=== PATIENT | male | born 1985 | race Caucasian/White ===

== ENCOUNTER 2023-10-07 14:58 | Emergency (ER) | payer OTHER, SELFPAY ==
[2023-10-07 15:00] VITALS: BP 141/89; PULSE 84; RESP 20; TEMP 36.4; O2SAT 99; BMI 44.1
[2023-10-07 15:33] LABS: Appearance Urine Clear (Clear); Bilirubin Urine Negative (Negative); Blood Urine 3+ (Negative); Color Urine Red (Yellow); Glucose Urine Negative (Negative); Ketones Urine Negative (Negative); Leukocyte Esterase Urine Negative (Negative); Nitrite Urine Negative (Negative); Protein Urine 2+ (Negative); Specific Gravity Urine 1.015 (1.000-1.030); Urobilinogen Urine 0.2 (0.2-1.0)
[2023-10-07 15:56] LABS: Squamous Epithelial Cell Urine Few (None-Few); WBC Urine 0-2 (0-5)
--- NOTE | 2023-10-07 16:08 | ED_ITS ---
HPI - General Adult General Date Seen: 10/07/23 Chief complaint: Urogenital Problems, Male Stated complaint: blood in urine Time Seen by Provider: 10/07/23 15:22 Source: patient Mode of arrival: ambulatory Limitations: no limitations History of Present Illness HPI narrative: Patient is a 37-year-old male with history of IgA nephropathy presenting to the emergency department for hematuria. He states he was diagnosed with IgA nephropathy several years ago. Was told to come the emergency department if he has any abnormalities. Last night have some suprapubic pain that went away after he urinated. Then today this afternoon he noticed blood in his urine. Has not had 3 episodes of blood in his urine. Has never had hematuria before. Denies any current abdominal pain. Denies dysuria couple fevers COVID chills could will reduce could redo choose 3 eczema shortness of breath. No other concerns noted at this time. He does not smoke tobacco products. No other concerns noted Related Data Home Medications Medication Instructions Recorded Confirmed adalimumab 40 mg/0.8 mL 40 mg subcut Q2W 10/07/23 10/07/23 subcutaneous syringe kit (Humira) Previous Rx's Medication Instructions Recorded oxycodone 5 mg capsule 5 mg PO Q6H PRN pain #12 caps 10/07/23 tamsulosin 0.4 mg capsule 0.4 mg PO QHS #14 caps 10/07/23 Allergies Allergy/AdvReac Type Severity Reaction Status Date / Time No Known Drug Allergies Allergy Verified 10/07/23 15:06 Review of Systems Status of ROS: Reports: 10 or more systems reviewed and unremarkable except as noted in History and below PFSH PFSH Social History Smoking Status: Current every day smoker Do you use any of these nicotine containing products: E-Cigarettes and Vaping Products Second hand tobacco smoke exposure: No How often do you have a drink containing alcohol: never AUDIT-C Alcohol total score: 0 Non-prescribed substance use: denies use Exam Narrative: Exam Narrative: Const: Well-nourished, Well-developed, in no distress Eyes: PERRL, no conjunctival injection, and symmetrical lids HENT: Atraumatic external nose and ears. Moist mucous membranes. Neck: Symmetric, trachea midline, No thyromegaly. CVS: RRR, No murmurs or gallops. Peripheral pulses 2+ and equal in all extremities RESP: Unlabored respiratory effort. Clear to auscultation bilaterally. GI: Nontender/Nondistended, No rebound or guarding. MSK:Extremities w/o deformity, Normal Active ROM Skin: Warm, Dry. No rashes or lesions. Neuro: Normal Muscle tone, No focal neurological deficits. Psych: Awake, Alert, & Oriented x3. Appropriate mood and affect. Const: Vital Signs, click to edit/add: Vital Signs - 24 hr 10/07/23 15:00 Temperature 97.5 F L Pulse Rate [Pulse Oximeter] 84 Respiratory Rate 20 Blood Pressure [Ri ght Upper Arm] 141/89 H Pulse Oximetry 99 Oxygen Delivery Me thod Room Air Course Vital Signs Vital signs: Initial Vital Signs Temperature 97.5 F L 10/07/23 15:00 Temperature Source Temporal Artery Scan 10/07/23 15:00 Pulse Rate 84 10/07/23 15:00 Respiratory Rate 20 10/07/23 15:00 Blood Pressure 141/89 H 10/07/23 15:00 Blood Pressure Mean 106 H 10/07/23 15:00 Blood Pressure Position Sitting 10/07/23 15:00 Pulse Oximetry 99 10/07/23 15:00 Oxygen Delivery Method Room Air 10/07/23 15:00 Vital Signs Temperature 97.5 F L 10/07/23 15:00 Pulse Rate 84 10/07/23 15:00 Respiratory Rate 20 10/07/23 15:00 Blood Pressure 141/89 H 10/07/23 15:00 Pulse Oximetry 99 10/07/23 15:00 Oxygen Delivery Method Room Air 10/07/23 15:00 Temperature 97.5 F L 10/07/23 15:00 Pulse Rate 84 10/07/23 15:00 Respiratory Rate 20 10/07/23 15:00 Blood Pressure 141/89 H 10/07/23 15:00 Pulse Oximetry 99 10/07/23 15:00 Oxygen Delivery Method Room Air 10/07/23 15:00 Medical Decision Making [facility] Narrative Medical decision making narrative: Patient is a 37-year-old male presenting for hematuria. Does have a history of IgA nephropathy. He has never had hematuria before. Urinalysis was ordered along with CBC and CMP. Has not required any pain medication at this time. No other concerns noted. Differential at this time includes nephrolithiasis, hematuria from his IgA nephropathy, UTI. Very low risk for bladder cancer. Urinalysis shows proteinuria and hematuria. This is consistent with IgA nephropathy. No signs of a UTI. CBC and CMP showed no concerning findings. I spoke to the patient about of CT scan verses nothing. At this time we are agreeable to do a CT scan as he has not had any done recently is had only 1 or [address] scan was then ordered showing a 5 mm obstructing kidney stone in the distal left ureter with mild left-sided hydroureteronephrosis. Patient is having no other symptoms at this time. Is not in any pain currently. Despite not currently being in pain I will send him home with some pain medication as he currently does not have a primary care provider, supervisor blood donor recruiters, urologist since the hospital system he was seeing recently shut down. He is working on setting up primary care and Nephrology. Patient is otherwise safe for discharge and he is agreeable to this plan. Lab Data Labs: Lab Results 10/07/23 10/07/23 Range/Units 15:20 16:00 WBC 6.66 (4.50-11.00) K/uL RBC 4.31 (4.30-5.90) m/uL Hgb 13.1 L (13.5-17.5) gm/dL Hct 38.3 (37.0-53.0) % MCV 89 (80-100) fL MCH 30 (26-34) pg MCHC 34 (32-36) gm/dL RDW Coeff of Tam 14.2 (11.5-15.5) % Plt Count 219 (140-440) K/uL Neut % (Auto) 62.3 (42.0-72.0) % Lymph % (Auto) 25.7 (20-44) % [place] % (Auto) 9.2 (0.0-11.0) % Eos % (Auto) 2.4 (0.0-7.0) % Baso % (Auto) 0.2 (0.0-3.0) % Neut # (Auto) 4.16 (1.7-7.0) K/uL Lymph # (Auto) 1.71 (0.90-2.90) K/uL [place] # (Auto) 0.60 (0.00-0.90) K/UL Eos # (Auto) 0.16 (0.00-0.50) K/uL Baso # (Auto) 0.01 (0.00-0.30) K/uL Abs Immat Gran (auto) 0.01 (0.00-0.30) K/uL Imm/Tot Granulo (auto) 0.2 % Sodium 139 (135-149) mmol/L Potassium 3.4 L (3.6-5.1) mmol/L Chloride 104 (96-114) mmol/L Carbon Dioxide 30 (20-32) mmol/L Anion Gap 5 L (7-15) mEq/L BUN 17 (5-24) mg/dL Creatinine 1.2 (0.5-1.5) mg/dL Estimated Creat Clear 79.96 Estimated GFR 79 ml/min Glucose 91 (60-115) mg/dL Calcium 9.2 (8.4-10.6) mg/dL Total Bilirubin 1.2 (0.1-1.5) mg/dL AST 36 H (12-35) U/L ALT 56 H (4-50) U/L Alkaline Phosphatase 86 (40-150) U/L Total Protein 8.0 (6.0-8.3) g/dL Albumin 4.3 (3.3-5.0) g/dL Urine Color Red A (Yellow) Urine Appearance Clear (Clear) Urine pH 7.0 (5.0-8.5) Ur Specific [place] 1.015 (1.000-1.030) Urine Protein 2+ A (Negative) Urine Glucose (UA) Negative (Negative) Urine Ketones Negative (Negative) Urine Blood 3+ A (Negative) Urine Nitrite Negative (Negative) Urine Bilirubin Negative (Negative) Urine Urobilinogen 0.2 (0.2-1.0) Ur Leukocyte Esterase Negative (Negative) Urine RBC 5-10 A (0-2) Urine WBC 0-2 (0-5) Ur Squamous Epith Cells Few (None-Few) Urine Bacteria None (None) Imaging Data CT scan abdomen and pelvis: Radiologist's impression: 1. There is an obstructing 5 millimeter stone seen in the distal left ureter with mild left-sided hydroureteronephrosis. 2. Cystic lesion of the upper pole of the left kidney measuring approximately 4.0 centimeters in greatest dimension with slightly heterogeneous internal attenuation. This is likely a benign cyst; however, would recommend repeat a CT or MR with a renal protocol in 6 months to assess for stability/morphologic changes. Please note that all CT scans at this facility use dose modulation, iterative reconstruction, and/or weight-based dosing when appropriate to reduce radiation dose to as low as reasonably achievable. Dictated by Benigno Bradshaw MD @ 10/07/2023 6:00:02 PM Discharge Plan Discharge Clinical Impression: Left nephrolithiasis Patient Disposition: Home, Self-Care Condition: Stable Instructions: Kidney Stones (ED), How to Strain Your Urine (ED) Additional Instructions: Make sure to set up primary care when he travel back home to [place]. Strain your urine until you passed the kidney stone. If you are having difficulty passing the kidney stone or developing any signs of infection I recommend following up with a urologist or another emergency department. I will also send you home with oxycodone to take in case you do develop severe pain. He can also take ibuprofen to help with the pain. Use the tamsulosin daily until you passed the kidney stone. It helps increase ureter follow to pass the stone. Prescriptions: New oxycodone 5 mg capsule 5 mg PO Q6H PRN (Reason: pain) Qty: 12 0RF tamsulosin 0.4 mg capsule 0.4 mg PO QHS Qty: 14 0RF No Action Humira 40 mg/0.8 mL syringe kit 40 mg subcut Q2W Follow Up/Referrals: Provider,Not a Local [Primary Care Provider] - Stand Alone Forms: [employer] Info Instructions
[2023-10-07 16:19] LABS: Basophils Absolute Auto 0.01 K/uL (0.00-0.30); Basophils Percent Auto 0.2 % (0.0-3.0); Eosinophils Absolute Auto 0.16 K/uL (0.00-0.50); Eosinophils Percent Auto 2.4 % (0.0-7.0); Hematocrit 38.3 % (37.0-53.0); Hemoglobin* 13.1 gm/dL (13.5-17.5); Immature Granulocytes Abs Auto 0.01 K/uL (0.00-0.30); Immature Granulocytes Pct Auto 0.2 %; Lymphocytes Absolute Auto 1.71 K/uL (0.90-2.90); Lymphocytes Percent Auto 25.7 % (20-44); Mean Corpuscular HGB Conc 34 gm/dL (32-36); Mean Corpuscular Hemoglobin 30 pg (26-34); Mean Corpuscular Volume 89 fL (80-100); Monocytes Percent Auto 9.2 % (0.0-11.0); Neutrophils Absolute Auto 4.16 K/uL (1.7-7.0); Neutrophils Percent Auto 62.3 % (42.0-72.0); Platelet Count* 219 K/uL (140-440); RDW Coefficient of Variation % 14.2 % (11.5-15.5); Red Blood Count 4.31 m/uL (4.30-5.90); White Blood Count* 6.66 K/uL (4.50-11.00)
[2023-10-07 16:20] LABS: Slide Review Reflex No
[2023-10-07 16:22] LABS: Chloride* 104 mmol/L (96-114)
[2023-10-07 16:23] LABS: Albumin* 4.3 g/dL (3.3-5.0); Potassium* 3.4 mmol/L (3.6-5.1); Sodium* 139 mmol/L (135-149)
[2023-10-07 16:25] LABS: Anion Gap 5 mEq/L (7-15); Carbon Dioxide* 30 mmol/L (20-32); Creatinine* 1.2 mg/dL (0.5-1.5); Est. Creatinine Clearance* 79.96; Estimated Glomerular Filt Rate 79 ml/min
[2023-10-07 16:26] LABS: Alanine Aminotransferase* 56 U/L (4-50); Alkaline Phosphatase* 86 U/L (40-150); Aspartate Amino Transferase* 36 U/L (12-35); Bilirubin Total* 1.2 mg/dL (0.1-1.5); Blood Urea Nitrogen* 17 mg/dL (5-24); Calcium* 9.2 mg/dL (8.4-10.6); Glucose* 91 mg/dL (60-115)
--- NOTE | 2023-10-07 16:32 | CT_ITS ---
Patient: SOPHIA CARBALLO Facility:?[facility] Patient ID:?[id number] Site Patient ID:?[id number]. Site :?[id number] Study:?CT-Abdomen/Pelvis w/ 143cc [id number] 5:26:12 PM Ordering Physician:Kalee Boyd Final Report: Indication: hematuria, suprapubic pain Technique: CT abdomen/pelvis with IV contrast, 143 mL Isovue 370 Comparison: Abdominal ultrasound on June 06, 2020 Findings: Lower thorax: The heart is normal in size without pericardial effusion. There are calcified granulomas in the right lung. Focus of scarring/atelectasis in the lingula. No suspicious pulmonary nodules or masses. Abdomen/pelvis: No suspicious focal hepatic lesions. 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 Mild diffuse hepatic steatosis. Status post cholecystectomy. No biliary ductal dilatation. The spleen is mildly enlarged without focal hepatic lesions. There is a splenule seen inferior to the spleen. The pancreas is unremarkable. No adrenal nodules. The kidneys perfused in a normal fashion. There is a cystic lesion of the upper pole of the left kidney measuring approximately 4.0 centimeters in greatest dimension with slightly heterogeneous attenuation. There are additional simple appearing cysts seen in the bilateral kidneys. There is an obstructing 5 millimeter stone seen in the distal left ureter with mild left-sided hydroureteronephrosis. Minimal left perinephric stranding. Mild circumferential bladder wall thickening, likely secondary to degree of distention. The seminal vesicles are unremarkable. Dystrophic calcifications in the prostate which is normal in size. There is no evidence of bowel obstruction or inflammation. The appendix is not discretely visualized, likely surgically removed. There are few scattered colonic diverticula without CT evidence of acute diverticulitis. No free fluid or free air. No pathologically enlarged lymph nodes throughout the abdomen or pelvis. The vasculature is unremarkable. Tiny fat containing umbilical hernia. No acute fracture or malalignment. Degenerative disc disease at L5-S1. Impression: 1. There is an obstructing 5 millimeter stone seen in the distal left ureter with mild left-sided hydroureteronephrosis. 2. Cystic lesion of the upper pole of the left kidney measuring approximately 4.0 centimeters in greatest dimension with slightly heterogeneous internal attenuation. This is likely a benign cyst; however, would recommend repeat a CT or MR with a renal protocol in 6 months to assess for stability/morphologic changes. Please note that all CT scans at this facility use dose modulation, iterative reconstruction, and/or weight-based dosing when appropriate to reduce radiation dose to as low as reasonably achievable. Dictated by Benigno Bradshaw MD @ 10/07/2023 6:00:02 PM Signed by:?Benigno Bradshaw MD @10/07/2023 6:00:02 PM (Electronic Signature)
[2023-10-07 18:42] VITALS: BP 141/89; PULSE 84; RESP 20; TEMP 36.4
== END 2023-10-07 18:55 | disposition home or self-care (01) ==
PROVIDERS: Emergency Provider Student in an Organized Health Care Education/Training Program
DX: N20.0 Calculus of kidney (principal)
CPT/HCPCS: 36415; 74177; 80053; 81001; 85025; 99283; 99284; 99285; Q9967

== ENCOUNTER 2024-11-12 17:21 | Emergency (ER) | payer OTHER, SELFPAY ==
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
--- OUTSIDE RECORDS SUMMARY | 2024-11-12 17:23 | XMS_ITS | Encounter Summary ---
Author Organization [facility] Address [facility] [place] [address] Care Team Providers Care Can Tester Name Role Phone Maryjane Garrett APRN Primary Care Provider + Maryjane Garrett APRN Primary Care Provider + None, Provider Primary Care Provider Alexa Hernandez DO Primary Care Provider Santa Robbins Primary Care Provider [phone] Reason for Referral * Consultation (Routine) - Closed Specialty Diagnoses / Procedures Referred By Beni boudreaux Referred To Contact DERMATOLOGY Diagnoses Psoriasis Maryjane Garrett APRN Phone: tel: fax: Referral ID Status Reason Start Date Expiration Date V isits Requested Visits Authorized [id number] Closed Specialty Services 09/21/2017 10/22/2018 1 1 Encounter Details Date Type Department Care Team (Late st Contact Info) Description 09/20/2017 NeGoBuY Message Enc [facility] [address] [place] [id number] Maryjane Garrett APRN [address] [place] [phone] Referral Social History Tobacco Use Types Packs/Day Years Used Date Smoking Tobacco: Light Smoker Cigarettes Electronic Cigarettes Smokeless Tobacco: Never Alcohol Use Standard Drinks/Week Comments No 0 (1 standard drink = 0.6 oz pur e alcohol) Sex and Gender Information Value Date Recorded Sex Assigned at Not on file Legal Sex Male 9:42 PM BELL STAFF Gender Identity Male 09/19/2022 8:08 AM CDT Sexual Orientation Straight 09/19/2022 8: 08 AM CDT documented as of this encounter Plan of Treatment Scheduled Referrals Name Type Priority Associated Diagnoses Orde r Schedule Ambulatory referral to Dermatology Referral Routine Psoriasis Ordered: 09/21/2017 documented as of this encounter Visit Diagnoses Diagnosis Psoriasis- Primary Other psoriasis documented in this encounter Additional Health Concerns Infection Onset Date Last Indicated Resolved Time COVID-19 Rule Out 07/15/2023 07/15/2023 07/15/2023 7:56 PM BELL STAFF Influenza - Seasonal 07/15/2023 07/15/2023 024 12:32 AM BELL STAFF documented as of this encounter Care Teams Can Tester Relationship Specialty Start Date End Date Maryjane Garrett APRN PCP - General NURSE PRACTITIONER 09/20/17 01/29/18 Maryjane Garrett APRN PCP - General NURSE PRACTITIONER 11/09/18 02/13/19 None, MD Sven PCP - General 02/14/19 07/15/23 [place] [address] [place] [address] PCP - General FAMILY PRACTICE 07/16/23 08/09/23 [place] [address] [place], [place] [address] PCP - General PHYSICIAN ASE MASTER MECHANIC 08/10/23 documented as of this encounter
--- OUTSIDE RECORDS SUMMARY | 2024-11-12 17:23 | XMS_ITS | Encounter Summary ---
Author Organization [facility] Address [address] [place] [address] Care Team Providers Care Early Interventionist Name Role Phone Maryjane Garrett APRN Primary Care Provider + None, Provider Primary Care Provider Alexa Hernandez DO Primary Care Provider Santa Robbins Primary Care Provider [phone] Encounter Details Date Type Department Care Team (Late st Contact Info) Description 11/09/2018 MyCPetcube Message Enc [employer] DEPARTMENT [address] [place] [address] [facility] Provider Visit Follow Up Social History Tobacco Use Types Packs/Day Years Used Date Smoking Tobacco: Light Smoker Cigarettes Electronic Cigarettes Smokeless Tobacco: Never Alcohol Use Standard Drinks/Week Comments No 0 (1 standard drink = 0.6 oz pur e alcohol) Sex and Gender Information Value Date Recorded Sex Assigned at Not on file Legal Sex Male 9:42 PM CLERICAL CLERK Gender Identity Male 09/19/2022 8:08 AM CDT Sexual Orientation Straight 09/19/2022 8: 08 AM CDT documented as of this encounter Plan of Treatment Not on file documented as of this encounter Visit Diagnoses Not on filedocumented in this encounter Additional Health Concerns Infection Onset Date Last Indicated Resolved Time COVID-19 Rule Out 07/15/2023 07/15/2023 07/15/2023 7:56 PM CLERICAL CLERK Influenza - Seasonal 07/15/2023 07/15/2023 024 12:32 AM CLERICAL CLERK documented as of this encounter Care Teams Early Interventionist Relationship Specialty Start Date End Date Maryjane Garrett APRN PCP - General NURSE PRACTITIONER 11/09/18 02/13/19 None, Provider, PCP - General 02/14/19 07/15/23 [place] [address] [place], [place] [address] PCP - General FAMILY PRACTICE 07/16/23 08/09/23 [place] [address] [place] [address] PCP - General PHYSICIAN CONSTRUCTION CONTROLLER 08/10/23 documented as of this encounter
--- OUTSIDE RECORDS SUMMARY | 2024-11-12 17:23 | XMS_ITS | Encounter Summary ---
Author Organization [facility] Address [address] [place] [address] Care Team Providers Care Early Childhood Educator Aide Name Role Phone Candace Anthony MD Primary Care Provider [phone] Encounter Details Date Type Department Care Team (Late st Contact Info) Description 09/18/[address] [address] [place] [address] [place] [address] Social History Tobacco Use Types Packs/Day Years Used Date Smoking Tobacco: Never Smokeless Tobacco: Never Comments:vapes Alcohol Use Standard Drinks/Week Comments Yes 0 (1 standard drink = 0.6 oz pur e alcohol) 4 beers per month [facility] Utilities Answer Date Recorded In the past 12 months has [employer], gas, oil, or water [employer] threatened to shut off services in your home? Yes 09/16/2024 Social Connection and Isolation Panel [NHANES] A nswer Date Recorded In a typical week, how many times do you talk on the phone with family, friends, or neighbors? Once a week 09/16/2024 How often do you get together with friends or re latives? Never 09/16/2024 How often do you attend restorationist or anabaptist serv ices? Never 09/16/2024 Do you belong to any clubs o r organizations such as restorationist groups, unions, fraternal or athletic groups, or school groups? No 09/16/2024 How often do you attend meet ings of the clubs or organizations you belong to? Never 09/16/2024 Are you , , di vorced, , never , or living with a partner? 09/16/2024 AUDIT-C Answer Date Recorded Q1: How often do you have a drink containing alc ohol? Monthly or less 09/16/2024 Q2: How many drinks containi ng alcohol do you have on a typical day when you are drinking? 3 or 4 09/16/2024 Q3: How often do you have si x or more drinks on one occasion? Less than monthly 09/16/2024 Overall Financial Resource Strain (CARDIA) Answe r Date Recorded How hard is it for you to pa y for the very basics like food, housing, medical care, and heating? Hard 09/16/2024 [facility] - Occupational Stress Questionnaire Answer Date Recorded Do you feel stress - tense, restless, nervous, or anxious, or unable to sleep at night because your mind is troubled all the time - these days? Only a little 09/16/2024 Exercise Vital Sign Answer Date Recorde d On average, how many days pe r week do you engage in moderate to strenuous exercise (like a brisk walk)? 2 days 09/16/2024 On average, how many minutes do you engage in exercise at this level? 30 min 09/16/2024 Hunger Vital Sign Answer Date Recorded Within the past 12 months, y ou worried that your food would run out before you got the money to buy more. Sometimes true Within the past 12 months, t he food you bought just didn't last and you didn't have money to get more. Never true 04/2025 PRAPARE - Transportation Answer Date Re corded In the past 12 months, has l ack of transportation kept you from medical appointments or from getting medications? No 09/07 In the past 12 months, has l ack of transportation kept you from meetings, work, or from getting things needed for daily living? No 09/16/2024 Housing Stability Vital Sign Answer Griffin e Recorded Unable to Pay for Housing in the Last Year Not o n file 07/14/2022 Number of Places Lived in the Last Year Not on f ile 07/14/2022 In the last 12 months, was t here a time when you did not have a steady place to sleep or slept in a chcf (including now)? No 07/14/2022 Housing Stability Vital Sign Answer Griffin e Recorded In the last 12 months, was t here a time when you were not able to pay the mortgage or rent on time? Yes 09/16/2024 In the past 12 months, how m any times have you moved where you were living? 0 09/16/2024 At any time in the past 12 m [place], were you homeless or living in a chcf (including now)? No 09/16/2024 Depression (GHS) Answer Date Recorded PHQ2 Not on file 09/16/2024 PHQ4 Not on file 09/16/2024 PHQ-9 TOTAL SCORE 10 09/16/2024 Suicide Risk Alert Not on file 09/16/2024 Sex and Gender Information Value Date Recorded Sex Assigned at Male 11/25/2020 8:12 PM CDT Legal Sex Male 1:31 PM MEDICAL OFFICE ASSISTANT Gender Identity Male 11/25/2020 8:12 PM CDT Sexual Orientation Straight 11/25/2020 8: 12 PM CDT documented as of this encounter Miscellaneous Notes * Telephone Encounter - Bren See - 10/28/2024 2:21 PM CDT Contacted Patient to follow-up regarding initial phone call to discuss social needs. Patient was unable to get connected to resources. Patient has been busy getting prepared for a new job so has not had time to look into all the resources. Patient would like another follow up in about a month. 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 Patient is going back for training with the [facility] [employer], but while that is happeningthey do not have much money. His is currently receiving $1400/month from disability and rent is $700/month. They receive food stamps, which pays for most but not all of their food. Their currentconcerns are paying for their water bill, food, and fuel assistance. Patient is open to other resources relating to utilities so that money can be used toward other needs. The following resources were sent via email: [facility] Emergency Assistance Services - [facility] [employer] Patient accepted a follow-up call in a few weeks. Priorities: Financial - Gave verbal consent to share resources Crisis indicated: Chiqui Urias * Telephone Encounter - Ruth Diaz - 09/18/2024 2:29 PM CDT Patient called back regarding initial phone call. Patient was out running errands and asked if we could call him back a later time today. * Telephone Encounter - Ruth Diaz - 09/18/2024 2:21 PM CDT This was the first attempt to call patient regarding their needs expressed on the Social Needs Assessment. Patient did not answer the phone, but was left a message to give us a call back. documented in this encounter Plan of Treatment Upcoming Encounters Date Type Department Care Team (Late st Contact Info) Description 12/03/2024 3:00 PM CDT Telephone Pharmacy Care [facility] - [facility] [address] [place] [id number] 03/25/2025 3:15 PM CDT Office Visit [place] - Dermatology [address] [place] [address] Roger Gupta MD [address] [place] [address] documented as of this encounter Visit Diagnoses Not on filedocumented in this encounter Care Teams Early Childhood Educator Aide Relationship Specialty [place] [address] [place], [place] [address] PCP - General FAMILY MEDICINE 08/30/24 documented as of this encounter
--- OUTSIDE RECORDS SUMMARY | 2024-11-12 17:23 | XMS_ITS | Encounter Summary ---
Author Organization [facility] Address [address] [place] [address] Care Team Providers Care Automatic Dry Starch Operator Name Role Phone Maryjane Garrett APRN Primary Care Provider + None, Provider Primary Care Provider Alexa Hernandez DO Primary Care Provider Santa Robbins Primary Care Provider [phone] Reason for Visit * Reason Comments Discharge Summary (SCAN) [facility] Encounter Details Date Type Department Care Team (Late st Contact Info) Description 11/08/2018 [facility] [address] [place] [phone] Scanned, Documents Discharge Summary (SCAN) ([facility]) Social History Tobacco Use Types Packs/Day Years Used Date Smoking Tobacco: Former Cigarettes Passive Smoke Exposure: Current Smokeless Tobacco: Never Comments:Vaping, 1 pod lasts 3 weeks- quit cigarettes x 9 years Passive Exposure Comments:vape Alcohol Use Standard Drinks/Week Comments Yes 3.3 (1 standard drink = 0.6 oz p ure alcohol) Drinks on holidays only Sex and Gender Information Value Date Recorded Sex Assigned at Not on file Legal Sex Male 9:42 PM GRADE RECORDER Gender Identity Male 09/19/2022 8:08 AM CDT Sexual Orientation Straight 09/19/2022 8: 08 AM CDT 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 Not on file Not on file documented as of this encounter Plan of Treatment Not on file documented as of this encounter Visit Diagnoses Not on filedocumented in this encounter Additional Health Concerns Infection Onset Date Last Indicated Resolved Time COVID-19 Rule Out 07/15/2023 07/15/2023 07/15/2023 7:56 PM GRADE RECORDER Influenza - Seasonal 07/15/2023 07/15/2023 024 12:32 AM GRADE RECORDER documented as of this encounter Care Teams Automatic Dry Starch Operator Relationship Specialty Start Date End Date Maryjane Garrett, REVIEW TRAINER PCP - General NURSE PRACTITIONER 11/09/18 02/13/19 None, MD Sven PCP - General 02/14/19 07/15/23 [place] [address] [place], [place] [id number] PCP - General FAMILY PRACTICE 07/16/23 08/09/23 [place] [address] [place], [place] [address] PCP - General PHYSICIAN OPERATIONS AND MAINTENANCE TECHNICIAN 08/10/23 documented as of this encounter
--- OUTSIDE RECORDS SUMMARY | 2024-11-12 17:23 | XMS_ITS | Clinical Summary ---
Author Organization [facility] Address [address] [place] [address] Care Team Providers Care Selvage Machine Operator Name Role Phone Pcp, No Primary Care Provider Unavailabl e Social History Tobacco Use Types Packs/Day Years Used Date Smoking Tobacco: Never Assessed Sex and Gender Information Value Date Recorded Sex Assigned at Not on file Gender Identity Not on file Sexual Orientation Not on file Plan of Treatment Health Maintenance Due Date Last Done Comments HIV Screening 1983 Annual Physical 05/29/1986 Obesity Intervention 11/26/1989 Varicella Vaccines (1 of 2 - 13+ 2-dose series) 11/26/1996 Hepatitis A Vaccines (1 of 2 - Risk 2-dose series) 11/26/2002 Hepatitis B Vaccines (1 of 3 - 19+ 3-dose series) 11/26/2002 COVID-19 Vaccine ( - 2023-2 5 season) 2024 Influenza Vaccine (Season Ended) 2025 08/11/2023 Diabetes Screening 08/11/2026 08/11/2023, 07/21/2022 Lipid Panel 07/21/2027 07/21/2022 DTaP/Tdap/Td Vaccines (3 - T d or Tdap) 11/07/2028 11/07/2018, 10/17/1988 Zoster Vaccines (1 of 2) 11/26/2033 Respiratory Syncytial Virus (RSV) 60 years and older and/or patients (1 - 1-dose 75+ series) 11/26/2058 MMR Vaccines Completed 01/24/1996 Pneumococcal: Pediatrics (0 to 5 Yrs) and At-Risk Patients (6 to 49 Years) Completed 08/11/2023 HPV Vaccines Aged Out No longer eligi ble based on patient's age to complete this topic Meningococcal B Vaccine Aged Out No l onger eligible based on patient's age to complete this topic Meningococcal Vaccine Aged Out No boby clover eligible based on patient's age to complete this topic Respiratory Syncytial Virus (RSV) <20 months Aged Out No longer eligible b ased on patient's age to complete this topic Care Teams Selvage Machine Operator Relationship Specialty Start Date End Date Pcp, No PCP - General 09/13/23
--- OUTSIDE RECORDS SUMMARY | 2024-11-12 17:23 | XMS_ITS | Encounter Summary ---
Author Organization [facility] Address [address] [place] [address] Care Team Providers Care Production Zone Leader Name Role Phone Maryjane Garrett APRN Primary Care Provider + Maryjane Garrett APRN Primary Care Provider + None, Provider Primary Care Provider Alexa Hernandez DO Primary Care Provider Santa Robbins Primary Care Provider [phone] Encounter Details Date Type Department Care Team (Late st Contact Info) Description 09/20/2017 xzoops Message Enc [employer] DEPARTMENT [address] [place] [address] [facility] Provider Visit Follow Up Social History Tobacco Use Types Packs/Day Years Used Date Smoking Tobacco: Light Smoker Cigarettes Electronic Cigarettes Smokeless Tobacco: Never Alcohol Use Standard Drinks/Week Comments No 0 (1 standard drink = 0.6 oz pur e alcohol) Sex and Gender Information Value Date Recorded Sex Assigned at Not on file Legal Sex Male 9:42 PM GRIT REMOVAL OPERATOR Gender Identity Male 09/19/2022 8:08 AM CDT Sexual Orientation Straight 09/19/2022 8: 08 AM CDT documented as of this encounter Plan of Treatment Not on file documented as of this encounter Visit Diagnoses Not on filedocumented in this encounter Additional Health Concerns Infection Onset Date Last Indicated Resolved Time COVID-19 Rule Out 07/15/2023 07/15/2023 07/15/2023 7:56 PM GRIT REMOVAL OPERATOR Influenza - Seasonal 07/15/2023 07/15/2023 024 12:32 AM GRIT REMOVAL OPERATOR documented as of this encounter Care Teams Production Zone Leader Relationship Specialty Start Date End Date Maryjane Garrett, ZOHREH PCP - General NURSE PRACTITIONER 09/20/17 01/29/18 Maryjane Garrett APRN PCP - General NURSE PRACTITIONER 11/09/18 02/13/19 None, ProviderMD PCP - General 02/14/19 07/15/23 [place] [address] [place] [address] PCP - General FAMILY PRACTICE 07/16/23 08/09/23 [place] [address] [place] [address] PCP - General PHYSICIAN CAREER SERVICES OFFICER 08/10/23 documented as of this encounter
--- OUTSIDE RECORDS SUMMARY | 2024-11-12 17:23 | XMS_ITS | Encounter Summary ---
Author Organization [facility] Address [address] [place] [address] Care Team Providers Care Saturator Operator Name Role Phone Candace Anthony MD Primary Care Provider [phone] Encounter Details Date Type Department Care Team (Late st Contact Info) Description 09/05/2024 Telephone Pharmacy [facility] [place] [address] [place], [place] [id number] Eli Kennedy, MANAGER WELDING [address] [place], [place] [id number] Social History Tobacco Use Types Packs/Day Years Used Date Smoking Tobacco: Never Smokeless Tobacco: Never Comments:vapes Alcohol Use Standard Drinks/Week Comments Yes 0 (1 standard drink = 0.6 oz pur e alcohol) 4 beers per month Social Connection and Isolation Panel [NHANES] A nswer Date Recorded In a typical week, how many times do you talk on the phone with family, friends, or neighbors? Twice a week 07/14/2022 Frequency of Social Gatherings with Friends and Family Not on file 07/14/2022 Attends Oriental Orthodox Services Not on file 07/14 Active Member of Clubs or Organizations Not on f ile 07/14/2022 Attends Club or Organization Meetings Not on meredith e 07/14/2022 Marital Status Not on file 07/14/2022 AUDIT-C Answer Date Recorded Q1: How often do you have a drink containing alc ohol? Monthly or less 07/14/2022 Q2: How many drinks containi ng alcohol do you have on a typical day when you are drinking? 1 or 2 07/14/2022 Q3: How often do you have si x or more drinks on one occasion? Never 07/14/2022 Overall Financial Resource Strain (CARDIA) Answe r Date Recorded How hard is it for you to pa y for the very basics like food, housing, medical care, and heating? Somewhat hard 07/14/2022 [facility] - Occupational Stress Questionnaire Answer Date Recorded Do you feel stress - tense, restless, nervous, or anxious, or unable to sleep at night because your mind is troubled all the time - these days? To some extent 07/14/2022 Exercise Vital Sign Answer Date Recorde d On average, how many days pe r week do you engage in moderate to strenuous exercise (like a brisk walk)? 3 days 07/14/2022 On average, how many minutes do you engage in exercise at this level? 90 min 07/14/2022 Hunger Vital Sign Answer Date Recorded Within the past 12 months, y ou worried that your food would run out before you got the money to buy more. Sometimes true Within the past 12 months, t he food you bought just didn't last and you didn't have money to get more. Never true 11/2022 PRAPARE - Transportation Answer Date Re corded In the past 12 months, has l ack of transportation kept you from medical appointments or from getting medications? No 11/2022 In the past 12 months, has l ack of transportation kept you from meetings, work, or from getting things needed for daily living? No 07/14/2022 Housing Stability Vital Sign Answer Griffin e Recorded Unable to Pay for Housing in the Last Year Not o n file 07/14/2022 Number of Places Lived in the Last Year Not on f ile 07/14/2022 In the last 12 months, was t here a time when you did not have a steady place to sleep or slept in a detention (including now)? No 07/14/2022 Depression (GHS) Answer Date Recorded PHQ2 Not on file 04/05/2024 PHQ4 Not on file 04/05/2024 PHQ-9 TOTAL SCORE 6 04/05/2024 Suicide Risk Alert Not on file 04/05/2024 Sex and Gender Information Value Date Recorded Sex Assigned at Male 11/25/2020 8:12 PM CDT Legal Sex Male 1:31 PM JAVASCRIPT PROGRAMMER Gender Identity Male 11/25/2020 8:12 PM CDT Sexual Orientation Straight 11/25/2020 8: 12 PM CDT documented as of this encounter Progress Notes * Eli Kennedy TECHNICIAN - 09/05/2024 10:16 AM CST [facility] requesting clinical paperwork for submission of PA request for medication, Skyrizi for: ROHAN-NELA Forwarding to PA Specialist Yuliya Kowalski [facility] SCRIPT PROGRAMMER documented in this encounter Miscellaneous Notes * Telephone Encounter - Yuliya Rutledge - 09/20/2024 10:44 AM CDT Patient seen 09/19. Completed PA/PDL for skyrizi and faxed to [facility] [id number] for processing. * Telephone Encounter - Yuliya Rutledge - 09/05/2024 12:58 PM CST Pt ID# [id number] with ROHAN RONDON. [facility] requires documentation of response to therapy, and patient has not been seen since starting Skyrizi. Dr. Gupta - please advise. Are we able to get patient in for follow up on Skyrizi? SCRIPT PROGRAMMER documented in this encounter Plan of Treatment Upcoming Encounters Date Type Department Care Team (Late st Contact Info) Description 12/03/2024 3:00 PM CDT Telephone Pharmacy Care [facility] - [facility] [address] [place] [id number] 03/25/2025 3:15 PM CDT Office Visit [place] - Dermatology [address] [place] [address] [place] [address] Roger Gupta MD [address] [place] [address] documented as of this encounter Visit Diagnoses Not on filedocumented in this encounter Care Teams Saturator Operator Relationship Specialty [place] [address] [place] [address] PCP - General FAMILY MEDICINE 08/30/24 documented as of this encounter
--- OUTSIDE RECORDS SUMMARY | 2024-11-12 17:24 | XMS_ITS | Encounter Summary ---
Author Organization [facility] Address [address] [place] [address] Care Team Providers Care Transplant Coordinator Name Role Phone Candace Anthony MD Primary Care Provider [phone] Encounter Details Date Type Department Care Team ([facility] st Contact Info) Description 10/01/2024 3:00 PM CDT Telephone Pharmacy Care Clinic [facility] [address] [place] [address] MaryDelgado franco, [facility] [address] [place], [place] [id number] Social History Tobacco Use Types Packs/Day Years Used Date Smoking Tobacco: Never Smokeless Tobacco: Never Comments:vapes Alcohol Use Standard Drinks/Week Comments Yes 0 (1 standard drink = 0.6 oz pur e alcohol) 4 beers per month [facility] Utilities Answer Date Recorded In the past 12 months has [employer], gas, oil, or water [employer] threatened to shut off services in your home? Yes 09/16/2024 Social Connection and Isolation Panel [NHANES] A nswer Date Recorded In a typical week, how many times do you talk on the phone with family, friends, or neighbors? Once a week 09/16/2024 How often do you get together with friends or re latives? Never 09/16/2024 How often do you attend adventism or judaism serv ices? Never 09/16/2024 Do you belong to any clubs o r organizations such as adventism groups, unions, fraternal or athletic groups, or [...] housing, medical care, and heating? Hard 09/16/2024 [facility] of Occupat ional Health - Occupational Stress [...] place to sleep or slept in a fpc (including now)? No 07/14/2022 Housing Stability Vital Sign Answer Griffin e Recorded In the last 12 months, was t here a time when you were not able to pay the mortgage or rent on time? Yes 09/16/2024 In the past 12 months, how m any times have you moved where you were living? 0 09/16/2024 At any time in the past 12 m [facility], were you homeless or living in a fpc (including now)? 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 Indication: PsO Dose confirmed based on patient factors: Yes Non-specialty additional therapies: topical steroids Start Date of Specialty Medications: 03/07/24 [employer] Email: [email or web address] MyChart Refill Enrollment No Emergency Contact Confirmed: Yes Therapy Summary Previously failed Humira and Otezla Unable to tolerate methotrexate Specialty Notes: call after 3pm Specialty Pharmacy Care Plan Value Time User Problem/issue: Leo has psoriasis on 85% of his body 03/07/2024 3:51 PM Gabriel So [facility] Resources available: Start Skyrizi and enroll in [facility] specialty pharmacy program 03/07/2024 3:51 PM Gabriel So [facility] Goals incorporating patient desires/motivation: He currently has psoriasis on his chest, back, abdomen, arms and legs. It is estimated that he has 85% of his body surface area affected with psoriasis. The goal will be to reduce it to 10% or less. 03/07/2024 3:51 PM Gabriel So [facility] Care plan initiation date: 03/07/24 03/07/2024 3:51 PM Gabriel So [facility] Care plan resolution duration (days): 365 03/07/2024 3:51 PM Gabriel So [facility] Care plan resolution date: 03/07/25 03/07/2024 3:51 PM Gabriel So [facility] Assessment: Leo is on Skyrizi 150 mg subcutaneously once every 12 weeks for psoriasis. He's overdue for his injection do to requiring a updated prior authorization. Last Skyrizi dose was due on 09/25/2024. Pharmacy will ship next supply on 10/03 and he will administer upon arrival. He can then stay on original schedule with next injection due on 12/18/2024. Leo reports the Skyrizi has been highly effective overall, but he's starting to have some increasedpsoriasis activity on the left leg due to the late dose. He explains a few dime to nickel size lesions. He also volunteered that his joints are feeling a bit stiffer towards the end of intervals. Overall, very pleased with Skyrizi and rates it an 8.5 out of 10. Injections are rotated in the abdomen and no difficulty with injection process. No postinjection reactions. He does endorse some fatigue for a day or 2 after the injection. Planisher suggested he could try 600 mg of ibuprofen to see if that assists with the fatigue. Plan: Leo has no medication questions or changes and will continue on current medication regimen. Next supply of Skyrizi will be shipped from [facility] on 10/03/2024 and accommodate dose to be given upon arrival. Next QMR call scheduled for 12/03/2024 at 3 PM This visit was conducted via phone and 5 minutes were spent on patient care, education, and/or counseling). Delgado Hernandez [facility] documented in this encounter Plan of Treatment Upcoming Encounters Date Type Department Care Team (Late st Contact Info) Description 12/03/2024 3:00 PM CDT Telephone Pharmacy Care [facility] Karen Colbert [address] [facility] [place] [address] 03/25/2025 3:15 PM CDT Office Visit [place] [facility] [address] [place] [address] Roger Gupta MD [address] [place] [phone] documented as of this encounter Visit Diagnoses Diagnosis Psoriasis- Primary Other psoriasis documented in this encounter Care Teams Transplant Coordinator Relationship Specialty [place] [address] [place] [address] PCP - General FAMILY MEDICINE 08/30/24 documented as of this encounter
--- OUTSIDE RECORDS SUMMARY | 2024-11-12 17:24 | XMS_ITS | Encounter Summary ---
Author Organization [employer] [facility] Address [address] [place] [address] Care Team Providers Care Band Presser Name Role Phone Candace Anthony MD Primary Care Provider [phone] Encounter Details Date Type Department Care Team (Late st Contact Info) Description 10/14/2024 Patient Self-Triage [address] [id number] Provider, [place] [address] [address] Social History Tobacco Use Types Packs/Day Years Used Date Smoking Tobacco: Never Smokeless Tobacco: Never Comments:vapes Alcohol Use Standard Drinks/Week Comments Yes 0 (1 standard drink = 0.6 oz pur e alcohol) 4 beers per month [facility] Utilities Answer Date Recorded In the past 12 months has [employer] electric, gas, oil, or water company threatened to shut off services in your home? Yes 09/16/2024 Social Connection and Isolation Panel [NHANES] A nswer Date Recorded In a typical week, how many times do you talk on the phone with family, friends, or neighbors? Once a week 09/16/2024 How often do you get together with friends or re latives? Never 09/16/2024 How often do you attend quaker or christian serv ices? Never 09/16/2024 Do you belong to any clubs o r organizations such as quaker groups, unions, fraternal or athletic groups, or [...] housing, medical care, and heating? Hard 09/16/2024 [facility] of Occupat ional Health - Occupational Stress [...] place to sleep or slept in a mcfp (including now)? No 07/14/2022 Housing Stability Vital Sign Answer Griffin e Recorded In the last 12 months, was t here a time when you were not able to pay the mortgage or rent on time? Yes 09/16/2024 In the past 12 months, how m any times have you moved where you were living? 0 09/16/2024 At any time in the past 12 m [facility], were you homeless or living in a mcfp (including now)? 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 Gender Identity Male 11/25/2020 8:12 PM CDT Sexual Orientation Straight 11/25/2020 8: 12 PM CDT documented as of this encounter Plan of Treatment Upcoming Encounters Date Type Department Care Team (Late st Contact Info) Description 12/03/2024 3:00 PM CDT Telephone Pharmacy Care Clinic - Karen Colbert [address] [facility] [place] [address] 03/25/2025 3:15 PM CDT Office Visit [place] - Derm[facility] [address] [place] [phone] Roger Gupta MD [address] [place] [phone] documented as of this encounter Visit Diagnoses Not on filedocumented in this encounter Care Teams Band Presser Relationship Specialty [place] [address] [place] [address] PCP - General FAMILY MEDICINE 08/30/24 documented as of this encounter
--- OUTSIDE RECORDS SUMMARY | 2024-11-12 17:24 | XMS_ITS | Encounter Summary ---
Author Organization [facility] Address [address] [place] [address] Care Team Providers Care Mobile Home Installer Name Role Phone Candace Anthony MD Primary Care Provider [phone] Encounter Details Date Type Department Care Team (Late st Contact Info) Description 10/01/2024 Telephone Pharmacy Care Clinic - [place] [address] [place], [place] [phone] Harshad Barba, FOLDER SEAMER [address] [place], [place] [id number] Social History Tobacco Use Types Packs/Day Years Used Date Smoking Tobacco: Never Smokeless Tobacco: Never Comments:vapes Alcohol Use Standard Drinks/Week Comments Yes 0 (1 standard drink = 0.6 oz pur e alcohol) 4 beers per month [facility] Utilities Answer Date Recorded In the past 12 months has [employer], [employer], oil, or water [employer] threatened to shut off services in your home? Yes 09/16/2024 Social Connection and Isolation Panel [NHANES] A nswer Date Recorded In a typical week, how many times do you talk on the phone with family, friends, or neighbors? Once a week 09/16/2024 How often do you get together with friends or re latives? Never 09/16/2024 How often do you attend rastafari or pentecostal serv ices? Never 09/16/2024 Do you belong to any clubs o r organizations such as rastafari groups, unions, fraternal or athletic groups, or [...] housing, medical care, and heating? Hard 09/16/2024 [facility] of Occupat ional Health - Occupational Stress [...] place to sleep or slept in a custodial (including now)? No 07/14/2022 Housing Stability Vital Sign Answer Griffin e Recorded In the last 12 months, was t here a time when you were not able to pay the mortgage or rent on time? Yes 09/16/2024 In the past 12 months, how m any times have you moved where you were living? 0 09/16/2024 At any time in the past 12 m onths, were you homeless or living in a custodial (including now)? No 09/16/2024 Depression ([facility]) Answer Date Recorded PHQ2 Not on file 09/16/2024 PHQ4 Not on file 09/16/2024 PHQ-9 TOTAL SCORE 10 09/16/2024 Suicide Risk Alert Not on file 09/16/2024 Sex and Gender Information Value Date Recorded Sex Assigned at Male 11/25/2020 8:12 PM CDT Legal Sex Male 1:31 PM [employer] Gender Identity Male 11/25/2020 8:12 PM CDT Sexual Orientation Straight 11/25/2020 8: 12 PM CDT documented as of this encounter Progress Notes * Harshad Barba, FOLDER SEAMER - 10/01/2024 2:52 PM CDT [facility] Specialty received PA approval, expiration: 09/19/2025. Thank You! -Harshad Shaw [facility] Specialty detective precinct documented in this encounter Plan of Treatment Upcoming Encounters Date Type Department Care Team (Late st Contact Info) Description 12/03/2024 3:00 PM CDT Telephone Pharmacy Care Clinic - Karen Walters [address] [place] [address] 03/25/2025 3:15 PM CDT Office Visit [place] [facility] D[facility] [address] [place] [phone] Roger Gupta MD [address] [place] [phone] documented as of this encounter Visit Diagnoses Not on filedocumented in this encounter Care Teams Mobile Home Installer Relationship Specialty [place] [address] [place] [address] PCP - General FAMILY MEDICINE 08/30/24 documented as of this encounter
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
--- OUTSIDE RECORDS SUMMARY | 2024-11-12 17:24 | XMS_ITS | Encounter Summary ---
Author Organization [facility] Address [address] [place] [address] Care Team Providers Care Senior Shipping Clerk Name Role Phone Candace Anthony MD Primary Care Provider [phone] Reason for Visit * Reason Comments Follow-up Vertigo has improved Encounter Details Date Type Department Care Team ([facility] Contact Info) Description 10/11/2024 1:45 PM CDT Office Visit [facility] Medicine [address] [place] [address] Candace Anthony MD [address] [place] [address] Vertigo (Primary Dx) Social History Tobacco Use Types Packs/Day Years Used Date Smoking Tobacco: Never Smokeless Tobacco: Never Comments:vapes Alcohol Use Standard Drinks/Week Comments Yes 0 (1 standard drink = 0.6 oz pur e alcohol) 4 beers per month [facility] Utilities Answer Date Recorded In the past 12 months has [employer], gas, oil, or water [employer] threatened to shut off services in your home? Yes 09/16/2024 Social Connection and Isolation Panel [NHANES] A nswer Date Recorded In a typical week, how many times do you talk on the phone with family, friends, or neighbors? Once a week 09/16/2024 How often do you get together with friends or re latives? Never 09/16/2024 How often do you attend sikhism or samaritan serv ices? Never 09/16/2024 Do you belong to any clubs o r organizations such as sikhism groups, unions, fraternal or athletic groups, or [...] housing, medical care, and heating? Hard 09/16/2024 [facility] - [...] in a detention (including now)? No 07/14/2022 Housing Stability Vital Sign Answer Griffin e Recorded In the last 12 months, was t here a time when you were not able to pay the mortgage or rent on time? Yes 09/16/2024 In the past 12 months, how m any times have you moved where you were living? 0 09/16/2024 At any time in the past 12 m [facility], were you homeless or living in a detention (including now)? 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 Vertigo - Doing much better at this time presume secondary to BPPV - Recommended following through with physical therapy - Follow-up as needed for ongoing worsening of symptoms No follow-ups on file. Subjective CC: Follow-up (Vertigo has improved ) HPI: Huseyin Fuentes is a 38 y.o. male here for vertigo follow-up. I saw him about a month ago where he was having issues with vertigo which was presumed secondary toBPPV. He says that he is doing much better and only having vertigo rarely. He is not having any other new symptoms. Please see my previous note for more detail. He is planning to go to physical therapy for this but has not been able to get in until next week. He denies having any other new symptoms or other concerns today. Objective BP 124/84 (BP Location: Left arm, Patient Position: Sitting, BP Cuff Size: Adult Large) Pulse 81 Physical Exam General: Alert and awake. Appearance: Healthy, alert, no acute distress . Psych: Attention: Normal. Normal mood and affect. Normal behavior, cooperative. Normal speech. Normal thought content. Normal cognition and memory. Judgment intact.. E / M Documentation Candace Anthony MD documented in this encounter Plan of Treatment Upcoming Encounters Date Type Department Care Team (Late st Contact Info) Description 12/03/2024 3:00 PM CDT Telephone Pharmacy [address] [address] 03/25/2025 3:15 PM CDT Office Visit [facility] [address] [place] [address] Roger Gupta MD [address] [place] [address] documented as of this encounter Visit Diagnoses Diagnosis Vertigo- Primary Dizziness and giddiness documented in this encounter Care Teams Senior Shipping Clerk Relationship Specialty [place] [address] [place] [address] PCP - General FAMILY MEDICINE 08/30/24 documented as of this encounter
[2024-11-12 17:41] VITALS: BP 154/93; PULSE 90; RESP 16; TEMP 36.6; O2SAT 98; BMI 43.8
[2024-11-12 17:49] LABS: Appearance Urine Cloudy (Clear); Bilirubin Urine 1+ (Negative); Blood Urine 3+ (Negative); Color Urine Brown (Yellow); Glucose Urine Negative (Negative); Ketones Urine Trace (Negative); Leukocyte Esterase Urine Trace (Negative); Nitrite Urine Positive (Negative); Protein Urine 3+ (Negative); Specific Gravity Urine >= 1.030 (1.000-1.030)
--- NOTE | 2024-11-12 18:14 | ED.GENADULT ---
HPI - General Adult General Chief complaint: Urogenital Problems, Male Stated complaint: Blood in urine Time Seen by Provider: 11/12/24 18:09 History of Present Illness HPI narrative: This 38-year-old male comes in reporting gross hematuria that began this morning. He also states that he has increased urinary frequency. He does not report any pain and arrives here with normal vital signs. He states that he has a history of IgA nephropathy and history of kidney stones. Related Data Home Medications ?Medication ?Instructions ?Recorded ?Confirmed lisdexamfetamine 20 mg capsule 20 mg PO QAM 11/12/24 11/12/24 (Vyvanse) risankizumab-rzaa 150 mg/mL 150 mg subcut Q12W 11/12/24 11/12/24 subcutaneous pen injector (Skyrizi) Previous Rx's ?Medication ?Instructions ?Recorded cephalexin 500 mg capsule 500 mg PO TID 10 days #30 caps 11/12/24 Allergies Allergy/AdvReac Type Severity Reaction Status Date / Time No Known Drug Allergies Allergy Verified 11/12/24 17:38 Review of Systems Status of ROS: Reports: 10 or more systems reviewed and unremarkable except as noted in History and below Narrative: Constitutional: No fevers, no weight gain or loss. Eyes: No discharge. No vision changes. HENT: No congestion, no sore throat, no ear pain. Cardiovascular: No chest pain, no palpitations. Respiratory: No shortness of breath, no wheezes, no cough. Gastrointestinal: No abdominal pain, no vomiting, no diarrhea. Genitourinary: Gross hematuria and increased urinary frequency. Musculoskeletal: Normal range of motion. Skin: No rashes, no pruritis. Neurological: No dizziness, weakness, sensory change, speech change. Endo/Heme/Allergies: No bruising or bleeding. No polydipsia. Pysch: no suicidality, no anxiety, no insomnia. All other systems reviewed and are negative. [facility] Social History Smoking Status: Current every day smoker Do you use any of these nicotine containing products: E-Cigarettes and Vaping Products Second hand tobacco smoke exposure: No How often do you have a drink containing alcohol: never AUDIT-C Alcohol total score: 0 Non-prescribed substance use: denies use Exam Narrative: Exam Narrative: Constitutional: Well-developed, well-nourished, no acute distress. HEENT: Normocephalic, atraumatic. Neck: Normal range of motion. Nontender. Supple. Heart: Regular. No murmurs. Normal rate. Intact distal pulses. Lungs: Clear to auscultation. No chest discomfort. No wheezes, rhonchi, or rales. Abdomen: Normal bowel sounds. Nontender. No rebound tenderness. Genitalia: Deferred. Back: No midline tenderness. Normal range of motion. Extremities: Normal range of motion. No injury. Skin: Intact. No rash. Warm. No erythema or pallor. Neurologic: No altered sensation. No weakness. Alert and oriented. Psychiatric: No suicidality. No anxiety or depression. No insomnia. Nursing notes and vitals signs are reviewed. Const: Vital Signs, click to edit/add: Vital Signs - 24 hr 11/12/24 17:41 Temperature 97.9 F Pulse Rate [Pulse Oximeter] 90 Respiratory Rate 16 Blood Pressure [Ri ght Forearm] 154/93 H Pulse Oximetry 98 Oxygen Delivery Me thod Room Air Course Vital Signs Vital signs: Initial Vital Signs Temperature 97.9 F 11/12/24 17:41 Temperature Source Temporal Artery Scan 11/12/24 17:41 Pulse Rate 90 11/12/24 17:41 Respiratory Rate 16 11/12/24 17:41 Blood Pressure 154/93 H 11/12/24 17:41 Blood Pressure Mean 113 H 11/12/24 17:41 Pulse Oximetry 98 11/12/24 17:41 Oxygen Delivery Method Room Air 11/12/24 17:41 Vital Signs Temperature 97.9 F 11/12/24 17:41 Pulse Rate 90 11/12/24 17:41 Respiratory Rate 16 11/12/24 17:41 Blood Pressure 154/93 H 11/12/24 17:41 Pulse Oximetry 98 11/12/24 17:41 Oxygen Delivery Method Room Air 11/12/24 17:41 Temperature 97.9 F 11/12/24 17:41 Pulse Rate 90 11/12/24 17:41 Respiratory Rate 16 11/12/24 17:41 Blood Pressure 154/93 H 11/12/24 17:41 Pulse Oximetry 98 11/12/24 17:41 Oxygen Delivery Method Room Air 11/12/24 17:41 Medical Decision Making MDM Narrative Medical decision making narrative: This patient comes in with dysuria symptoms as described above. Urinalysis is obtained and shows evidence of infection with hematuria and proteinuria. Patient has normal vital signs and states that he is not having any other symptoms other than increased frequency and hematuria. A prescription for Keflex is provided. I advised him to follow-up with his primary physician for recheck or return if not improving or worsening symptoms happen. Lab Data Labs: Lab Results 11/12/24 Range/Units 17:40 Urine Color Brown A (Yellow) Urine Appearance Cloudy A (Clear) Urine pH 6.0 (5.0-8.5) Ur Specific [place] >= 1.030 (1.000-1.030) Urine Protein 3+ A (Negative) Urine Glucose (UA) Negative (Negative) Urine Ketones Trace A (Negative) Urine Blood 3+ A (Negative) Urine Nitrite Positive A (Negative) Urine Bilirubin 1+ A (Negative) Urine Urobilinogen 1.0 (0.2-1.0) Ur Leukocyte Esterase Trace A (Negative) Urine RBC 25-50 A (0-2) Urine WBC 10-25 A (0-5) Ur Squamous Epith Cells Few (None-Few) Urine Bacteria Moderate A (None) Discharge Plan Discharge Clinical Impression: Urinary tract infection Patient Disposition: Home, Self-Care Condition: Stable Additional Instructions: Take medication as prescribed. Take plenty of fluids. Follow up with MD for recheck or return if not improving or worsening symptoms happen. Prescriptions: New cephalexin 500 mg capsule 500 mg PO TID 10 Days Qty: 30 0RF No Action lisdexamfetamine [Vyvanse] 20 mg capsule 20 mg PO QAM Skyrizi 150 mg/mL pen injector 150 mg subcut Q12W Follow Up/Referrals: Provider,Not a Local [Primary Care Provider] - Stand Alone Forms: [employer] Info Instructions
[2024-11-12 18:19] LABS: Bacteria Urine Moderate; RBC Urine 25-50 (0-2); Squamous Epithelial Cell Urine Few (None-Few)
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
--- OUTSIDE RECORDS SUMMARY | 2024-11-12 18:28 | XMS_ITS | Clinical Summary ---
[facility] Address [address] [place] [address] Care Team Providers Care Floor Covering Printer Assistant Name Role Phone Unassigned, Provider Primary Care Provider Unava ilable Source Comments You are receiving this document as you are listed as the primary care provider,follow-up provider, or the patient has been referred to you for consultation.This is in compliance with the Medicare and[facility] Hospital[facility]and EHR Incentive Program,which states Providers who transition their patient to another setting of careor provider of care or refers their patient to another provider of care shouldprovide summary care record for each transition of care or referral. Explore Engage Allergies No known active allergies Medications cetirizine [...] patient's age to complete this topic Insurance [facility] [place] Advance Directives * Full Code (Latest Code Status on File) Date Activated Date Inactivated Comments 11/07/2018 9:44 PM 11/08/2018 1:45 PM Care Teams Floor Covering Printer Assistant Relationship Specialty Start Date End Date Unassigned, Provider [address] [place] [id number] PCP - General 09/09/00
--- OUTSIDE RECORDS SUMMARY | 2024-11-12 18:28 | XMS_ITS | Encounter Summary ---
Author Organization [facility] Address [address] [place] [address] Care Team Providers Care Saddle Stitch Operator Name Role Phone Maryjane Garrett APRN Primary Care Provider + Maryjane Garrett APRN Primary Care Provider + None, Provider Primary Care Provider Alexa Hernandez DO Primary Care Provider Santa Robbins Primary Care Provider [phone] Encounter Details Date Type Department Care Team (Late st Contact Info) Description 09/20/2017 [employer] Message Enc [facility] DEPARTMENT [address] [place] [address] [facility] Provider Visit Follow Up Social History Tobacco Use Types Packs/Day Years Used Date Smoking Tobacco: Light Smoker Cigarettes Electronic Cigarettes Smokeless Tobacco: Never Alcohol Use Standard Drinks/Week Comments No 0 (1 standard drink = 0.6 oz pur e alcohol) Sex and Gender Information Value Date Recorded Sex Assigned at Not on file Legal Sex Male 9:42 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 Gender Identity Male 09/19/2022 8:08 AM CDT Sexual Orientation Straight 09/19/2022 8: 08 AM CDT documented as of this encounter Plan of Treatment Not on file documented as of this encounter Visit Diagnoses Not on filedocumented in this encounter Additional Health Concerns Infection Onset Date Last Indicated Resolved Time COVID-19 Rule Out 07/15/2023 07/15/2023 07/15/2023 7:56 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 Influenza - Seasonal 07/15/2023 07/15/2023 024 12:32 AM GROUNDS SUPERVISOR documented as of this encounter Care Teams Saddle Stitch Operator Relationship Specialty Start Date End Date Maryjane Garrett, ZOHREH PCP - General NURSE PRACTITIONER 09/20/17 01/29/18 Maryjane Garrett APRN PCP - General NURSE PRACTITIONER 11/09/18 02/13/19 None, ProviderMD PCP - General 02/14/19 07/15/23 [place] [address] [place] [address] PCP - General FAMILY PRACTICE 07/16/23 08/09/23 [place] [address] [place] [address] PCP - General PHYSICIAN REGISTERED ACCOUNT ADMINISTRATOR 08/10/23 documented as of this encounter
--- OUTSIDE RECORDS SUMMARY | 2024-11-12 18:28 | XMS_ITS | Encounter Summary ---
Author Organization [facility] Address [address] [place] [address] Care Team Providers Care Headlight Assembler Name Role Phone Candace Anthony MD Primary Care Provider [phone] Encounter Details Date Type Department Care Team (Late st Contact Info) Description 10/14/2024 Patient Self-Triage [address] [phone] Provider, [place] [address] [address] Social History Tobacco Use Types Packs/Day Years Used Date Smoking Tobacco: Never Smokeless Tobacco: Never Comments:vapes Alcohol Use Standard Drinks/Week Comments Yes 0 (1 standard drink = 0.6 oz pur e alcohol) 4 beers per month [facility] Utilities Answer Date Recorded In the past 12 months has [employer], gas, oil, or water company threatened [...] Never 09/16/2024 How often do you attend tenriism or sabianism serv ices? Never 09/16/2024 Do you belong to any clubs o r organizations such as tenriism groups, unions, fraternal or athletic groups, or [...] housing, medical care, and heating? Hard 09/16/2024 [facility] Occupat ional Health - Occupational Stress [...] any time in the past 12 m [facility], were you homeless or living in a custodial (including now)? 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[employer]IP Gender Identity Male 11/25/2020 8:12 PM CDT Sexual Orientation Straight 11/25/2020 8: 12 PM CDT documented as of this encounter Plan of Treatment Upcoming Encounters Date Type Department Care Team (Late st Contact Info) Description 12/03/2024 3:00 PM CDT Telephone Pharmacy [facility] [address] [facility] [place] [address] 03/25/2025 3:15 PM CDT Office Visit [place] [facility] Dermatology [address] [place] [id number] Roger Gupta MD [address] [place] [address] documented as of this encounter Visit Diagnoses Not on filedocumented in this encounter Care Teams Headlight Assembler Relationship Specialty [place] [address] [place] [address] PCP - General FAMILY MEDICINE 08/30/24 documented as of this encounter
--- OUTSIDE RECORDS SUMMARY | 2024-11-12 18:28 | XMS_ITS | Encounter Summary ---
Author Organization [facility] Address [address] [place] [address] Care Team Providers Care Landscape Painter Name Role Phone Candace Anthony MD Primary Care Provider [phone] Encounter Details Date Type Department Care Team ([facility] st Contact Info) Description 10/01/2024 3:00 PM CDT Telephone Pharmacy Care Clinic [facility] [address] [place] [address] MaryDelgado franco, [facility] [address] [place], [place] [id number] Social History Tobacco Use Types Packs/Day Years Used Date Smoking Tobacco: Never Smokeless Tobacco: Never Comments:vapes Alcohol Use Standard Drinks/Week Comments Yes 0 (1 standard drink = 0.6 oz pur e alcohol) 4 beers per month [facility] Utilities Answer Date Recorded In the past 12 months has [employer], gas, oil, or water [employer] threatened to shut off services in your home? Yes 09/16/2024 Social Connection and Isolation Panel [NHANES] A nswer Date Recorded In a typical week, how many times do you talk on the phone with family, friends, or neighbors? Once a week 09/16/2024 How often do you get together with friends or re latives? Never 09/16/2024 How often do you attend orthodoxy or worship serv ices? Never 09/16/2024 Do you belong to any clubs o r organizations such as orthodoxy groups, unions, fraternal or athletic groups, or [...] housing, medical care, and heating? Hard 09/16/2024 [facility] of Occupat ional Health - Occupational Stress [...] place to sleep or slept in a alf (including now)? No 07/14/2022 Housing Stability Vital [...] time in the past 12 m [facility], were you homeless or living in a alf (including now)? 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 Indication: PsO Dose confirmed based on patient factors: Yes Non-specialty additional therapies: topical steroids Start Date of Specialty Medications: 03/07/24 [employer] Shipping Email: [email or web address] Specialty MyChart Refill Enrollment No Emergency Contact Confirmed: Yes Therapy Summary Previously failed Humira and Otezla Unable to tolerate methotrexate Specialty Notes: call after 3pm Specialty Pharmacy Care Plan Value Time User Problem/issue: Leo has psoriasis on 85% of his body 03/07/2024 3:51 PM Gabriel So [facility] Resources available: Start Skyrizi and enroll in [facility] specialty pharmacy program 03/07/2024 3:51 PM Gabriel So [facility] Goals incorporating patient desires/motivation: He currently has psoriasis on his chest, back, abdomen, arms and legs. It is estimated that he has 85% of his body surface area affected with psoriasis. The goal will be to reduce it to 10% or less. 03/07/2024 3:51 PM Gabriel oS [facility] Care plan initiation date: 03/07/24 03/07/2024 3:51 PM Gabriel So [facility] Care plan resolution duration (days): 365 03/07/2024 3:51 PM Gabriel So [facility] Care plan resolution date: 03/07/25 03/07/2024 3:51 PM Gabriel oS [facility] Assessment: Leo is on Skyrizi 150 [...] a day or 2 after the injection. Technology Education Teacher suggested he could try 600 mg of ibuprofen to see if that assists with the fatigue. Plan: Leo has no medication questions or changes and will continue on current medication regimen. Next supply of Skyrizi will be shipped from [facility] on 10/03/2024 and accommodate dose to be given upon arrival. Next QMR call scheduled for 12/03/2024 at 3 PM This visit was conducted via phone and 5 minutes were spent on patient care, education, and/or counseling). Delgado Hernandez [facility] documented in this encounter Plan of Treatment Upcoming Encounters Date Type Department Care Team (Late st Contact Info) Description 12/03/2024 3:00 PM CDT Telephone Pharmacy Care [facility] Karen Colbert [address] [facility] [place] [address] 03/25/2025 3:15 PM CDT Office Visit [place] - Dermatology [address] [place] [address] Roger Gupta MD [address] [place] [address] documented as of this encounter Visit Diagnoses Diagnosis Psoriasis- Primary Other psoriasis documented in this encounter Care Teams Landscape Painter Relationship Specialty [place] [address] [place] [address] PCP - General FAMILY MEDICINE 08/30/24 documented as of this encounter
--- OUTSIDE RECORDS SUMMARY | 2024-11-12 18:28 | XMS_ITS | Encounter Summary ---
Author Organization [facility] Address [address] [place] [address] Care Team Providers Care Brick Loader Name Role Phone Maryjane Garrett APRN Primary Care Provider + None, Provider Primary Care Provider Alexa Hernandez DO Primary Care Provider Santa Robbins Primary Care Provider Encounter Details Date Type Department Care Team (Late st Contact Info) Description 11/09/2018 [employer] Message Enc [facility] DEPART[facility] [address] [place] [address] [facility] Provider Visit Follow Up Social History Tobacco Use Types Packs/Day Years Used Date Smoking Tobacco: Light Smoker Cigarettes Electronic Cigarettes Smokeless Tobacco: Never Alcohol Use Standard Drinks/Week Comments No 0 (1 standard drink = 0.6 oz pur e alcohol) Sex and Gender Information Value Date Recorded Sex Assigned at Not on file Legal Sex Male 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 Gender Identity Male 09/19/2022 8:08 AM CDT Sexual Orientation Straight 09/19/2022 8: 08 AM CDT documented as of this encounter Plan of Treatment Not on file documented as of this encounter Visit Diagnoses Not on filedocumented in this encounter Additional Health Concerns Infection Onset Date Last Indicated Resolved Time COVID-19 Rule Out 07/15/2023 07/15/2023 07/15/2023 7:56 PM EXECUTIVE BUSINESS COACH Influenza - Seasonal 07/15/2023 07/15/2023 024 12:32 AM EXECUTIVE BUSINESS COACH documented as of this encounter Care Teams Brick Loader Relationship Specialty Start Date End Date Maryjane Garrett APRN PCP - General NURSE PRACTITIONER 11/09/18 02/13/19 None, Provider, PCP - General 02/14/19 07/15/23 [place] [address] [place], [place] [id number] PCP - General FAMILY PRACTICE 07/16/23 08/09/23 [place] [address] [place] [address] PCP - General PHYSICIAN GRAIN RECEIVER 08/10/23 documented as of this encounter
--- OUTSIDE RECORDS SUMMARY | 2024-11-12 18:28 | XMS_ITS | Encounter Summary ---
Author Organization [facility] Address [facility] [place] [address] Care Team Providers Care Outpatient Admitting Clerk Name Role Phone Maryjane Garrett APRN Primary Care Provider + Maryjane Garrett APRN Primary Care Provider + None, Provider Primary Care Provider Alexa Hernandez DO Primary Care Provider Santa Robbins Primary Care Provider [phone] Reason for Referral * Consultation (Routine) - Closed Specialty Diagnoses / Procedures Referred By Beni boudreaux Referred To Contact DERMATOLOGY Diagnoses Psoriasis Maryjane Garrett APRN Phone: tel: fax: Referral ID Status Reason Start Date Expiration Date V isits Requested Visits Authorized [id number] Closed Specialty Services 09/21/2017 10/22/2018 1 1 Encounter Details Date Type Department Care Team (Late st Contact Info) Description 09/20/2017 [employer] Message Enc [facility] [address] [place] [address] Maryjane Garrett APRN [address] [place] [phone] Referral Social History Tobacco Use Types Packs/Day Years Used Date Smoking Tobacco: Light Smoker Cigarettes Electronic Cigarettes Smokeless Tobacco: Never Alcohol Use Standard Drinks/Week Comments No 0 (1 standard drink = 0.6 oz pur e alcohol) Sex and Gender Information Value Date Recorded Sex Assigned at Not on file Legal Sex Male 9:42 PM FOOD EQUIPMENT SERVICE TECHNICIAN Gender Identity Male 09/19/2022 8:08 AM [...] Rule Out 07/15/2023 07/15/2023 07/15/2023 7:56 PM FOOD EQUIPMENT SERVICE TECHNICIAN Influenza - Seasonal 07/15/2023 07/15/2023 024 12:32 AM FOOD EQUIPMENT SERVICE TECHNICIAN documented as of this encounter Care Teams Outpatient Admitting Clerk Relationship Specialty Start Date End Date Maryjane Garrett APRN PCP - General NURSE PRACTITIONER 09/20/17 01/29/18 Maryjane Garrett APRN PCP - General NURSE PRACTITIONER 11/09/18 02/13/19 None, MD Sven PCP - General 02/14/19 07/15/23 [place] [address] [place] [address] PCP - General FAMILY PRACTICE 07/16/23 08/09/23 [place] [address] [place], [place] [address] PCP - General PHYSICIAN CURRICULUM FACILITATOR 08/10/23 documented as of this encounter
--- OUTSIDE RECORDS SUMMARY | 2024-11-12 18:28 | XMS_ITS | Encounter Summary ---
Author Organization [facility] Address [address] [place] [address] Care Team Providers Care Sterilizer Operator Name Role Phone Candace Anthony MD Primary Care Provider [phone] Encounter Details Date Type Department Care Team (Late st Contact Info) Description 09/18/[address] [address] [place] [address] [place] [address] Social History Tobacco Use Types Packs/Day Years Used Date Smoking Tobacco: Never Smokeless Tobacco: Never Comments:vapes Alcohol Use Standard Drinks/Week Comments Yes 0 (1 standard drink = 0.6 oz pur e alcohol) 4 beers per month [facility] Utilities Answer Date Recorded In the past 12 months has [employer], gas, oil, or water [employer] threatened to shut off services in your home? Yes 09/16/2024 Social Connection and Isolation Panel [NHANES] A nswer Date Recorded In a typical week, how many times do you talk on the phone with family, friends, or neighbors? Once a week 09/16/2024 How often do you get together with friends or re latives? Never 09/16/2024 How often do you attend nondenominational or faith serv ices? Never 09/16/2024 Do you belong to any clubs o r organizations such as nondenominational groups, unions, fraternal or athletic groups, or [...] housing, medical care, and heating? Hard 09/16/2024 [facility] of Occupat ional Health - Occupational Stress [...] No 09/16/2024 Housing Stability Vital Sign Answer Grififn e Recorded Unable to Pay for Housing [...] time in the past 12 m [facility], were you homeless or living in a chcf (including now)? 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 Patient is going back for training with the [employer], but while that is happeningthey [...] The following resources were sent via email: [facility] Emergency Assistance Services - [facility] [employer] Patient accepted a follow-up call [...] Clinic - Karen Walters [address] [place] [address] 03/25/2025 3:15 PM CDT Office Visit [place] - Dermatology [address] [place] [address] Roger Gupta MD [address] [place] [address] documented as of this encounter Visit Diagnoses Not on filedocumented in this encounter Care Teams Sterilizer Operator Relationship Specialty [place] [address] [place], [place] [address] PCP - General FAMILY MEDICINE 08/30/24 documented as of this encounter
--- OUTSIDE RECORDS SUMMARY | 2024-11-12 18:28 | XMS_ITS | Encounter Summary ---
Author Organization [facility] Address [address] [place] [address] Care Team Providers Care Director Trading Name Role Phone Maryjane Garrett APRN Primary Care Provider + None, Provider Primary Care Provider Alexa Hernandez DO Primary Care Provider Santa Robbins Primary Care Provider Reason for Visit * Reason Comments Discharge Summary (SCAN) [facility] Encounter Details Date Type Department Care Team (Late st Contact Info) Description 11/08/2018 [facility] [address] [place] [phone] Scanned, Documents Discharge Summary (SCAN) ([facility]) Social History Tobacco Use Types Packs/Day [...] on file Legal Sex Male 9:42 PM BIN PILER Gender Identity Male 09/19/2022 8:08 AM CDT Sexual Orientation Straight 09/19/2022 8: 08 AM CDT 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 Not on file Not on file documented as of this encounter Plan of Treatment Not on file documented as of this encounter Visit Diagnoses Not on filedocumented in this encounter Additional Health Concerns Infection Onset Date Last Indicated Resolved Time COVID-19 Rule Out 07/15/2023 07/15/2023 07/15/2023 7:56 PM BIN PILER Influenza - Seasonal 07/15/2023 07/15/2023 024 12:32 AM BIN PILER documented as of this encounter Care Teams Director Trading Relationship Specialty Start Date End Date Maryjane Garrett, ACTIVITIES COUNSELOR PCP - General NURSE PRACTITIONER 11/09/18 02/13/19 None, MD Sven PCP - General 02/14/19 07/15/23 [place] [address] [place], [place] [address] PCP - General FAMILY PRACTICE 07/16/23 08/09/23 [place] [address] [place], [place] [address] PCP - General PHYSICIAN COATER BRAKE LININGS 08/10/23 documented as of this encounter
--- OUTSIDE RECORDS SUMMARY | 2024-11-12 18:28 | XMS_ITS | Encounter Summary ---
Author Organization [facility] [facility] Address [address] [place] [address] Care Team Providers Care Plate Painter Apprentice Name Role Phone Candace Anthony MD Primary Care Provider [phone] Encounter Details Date Type Department Care Team (Late st Contact Info) Description 10/01/2024 Telephone Pharmacy Care Clinic - [place] [address] [place], [place] [id number] Harshad Barba, PUMPING STATION ENGINEER [address] [place], [place] [id number] Social History Tobacco Use Types Packs/Day Years Used Date Smoking Tobacco: Never Smokeless Tobacco: Never Comments:vapes Alcohol Use Standard Drinks/Week Comments Yes 0 (1 standard drink = 0.6 oz pur e alcohol) 4 beers per month [facility] Utilities Answer Date Recorded In the past 12 months has [employer], [employer], oil, or water [employer] threatened to shut off services in your home? Yes 09/16/2024 Social Connection and Isolation Panel [NHANES] A nswer Date Recorded In a typical week, how many times do you talk on the phone with family, friends, or neighbors? Once a week 09/16/2024 How often do you get together with friends or re latives? Never 09/16/2024 How often do you attend alevism or orthodox serv ices? Never 09/16/2024 Do you belong to any clubs o r organizations such as alevism groups, unions, fraternal or athletic groups, or [...] housing, medical care, and heating? 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 Thank You! -Harshad Shaw [facility] Special[facility] womens health nurse practitioner documented in this encounter Plan of Treatment Upcoming Encounters Date Type Department Care Team (Late st Contact Info) Description 12/03/2024 3:00 PM CDT Telephone Pharmacy Care Clinic - [facility] [address] [place] [address] 03/25/2025 3:15 PM CDT Office Visit [place] - Dermatology [address] [place] [address] Roger Gupta MD [address] [place] [address] documented as of this encounter Visit Diagnoses Not on filedocumented in this encounter Care Teams Plate Painter Apprentice Relationship Specialty [place] [address] [place] [address] PCP - General FAMILY MEDICINE 08/30/24 documented as of this encounter
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
--- OUTSIDE RECORDS SUMMARY | 2024-11-12 18:28 | XMS_ITS | Encounter Summary ---
Author Organization [facility] Address [address] [place] [address] Care Team Providers Care Weight Recorder Name Role Phone Candace Anthony MD Primary Care Provider [phone] Encounter Details Date Type Department Care Team (Late st Contact Info) Description 09/05/2024 Telephone Pharmacy [facility] [address] [place], [place] [id number] Eli Kennedy, MAT SEWER [address] [place], [place] [id number] Social History Tobacco Use Types Packs/Day Years [...] and Family Not on file 07/14/2022 Attends [employer] Services Not on file 07/14 Active Member [...] medical care, and heating? Somewhat hard 07/14/2022 [facility] - Occupational Stress Questionnaire Answer Date [...] place to sleep or slept in a long-term (including now)? 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 Completed PA/PDL for skyrizi and faxed to [facility] Specialty [id number] for processing. * Telephone Encounter - Yuliya Rutledge - 09/05/2024 12:58 PM CST Pt ID# [id number] with ROHAN RONDON. [facility] requires documentation of response to therapy, and patient has not been seen since starting Skyrizi. Dr. Gupta - please advise. Are we able to get patient in for follow up on Skyrizi? VERY ASSOCIATE documented in this encounter Plan of Treatment Upcoming Encounters Date Type Department Care Team (Late st Contact Info) Description 12/03/2024 3:00 PM CDT Telephone Pharmacy Care [facility] Walters [address] [place] [address] 03/25/2025 3:15 PM CDT Office Visit [place] - D[facility]atology [address] [place] [address] [place] [address] Roger Gupta MD [address] [place] [address] documented as of this encounter Visit Diagnoses Not on filedocumented in this encounter Care Teams Weight Recorder Relationship Specialty [place] [address] [place] [address] PCP - General FAMILY MEDICINE 08/30/24 documented as of this encounter
--- OUTSIDE RECORDS SUMMARY | 2024-11-12 18:28 | XMS_ITS | Encounter Summary ---
Author Organization [facility] Address [address] [place] [address] Care Team Providers Care Grounds Worker Name Role Phone Candace Anthony MD Primary Care Provider [phone] Reason for Visit * Reason Comments Follow-up Vertigo has improved Encounter Details Date Type Department Care Team ([facility] Contact Info) Description 10/11/2024 1:45 PM CDT Office Visit [facility] Medicine [address] [place] [address] Candace Anthony MD [address] [place] [address] Vertigo (Primary Dx) Social History Tobacco Use Types Packs/Day Years Used Date Smoking Tobacco: Never Smokeless Tobacco: Never Comments:vapes Alcohol Use Standard Drinks/Week Comments Yes 0 (1 standard drink = 0.6 oz pur e alcohol) 4 beers per month [facility] Utilities Answer Date Recorded In the past 12 months has [employer], gas, oil, or water [employer] threatened to shut off services in your home? Yes 09/16/2024 Social Connection and Isolation Panel [NHANES] A nswer Date Recorded In a typical week, how many times do you talk on the phone with family, friends, or neighbors? Once a week 09/16/2024 How often do you get together with friends or re latives? Never 09/16/2024 How often do you attend hindu or latter day serv ices? Never 09/16/2024 Do you belong to any clubs o r organizations such as hindu groups, unions, fraternal or athletic groups, or [...] housing, medical care, and heating? Hard 09/16/2024 [facility] - [...] place to sleep or slept in a fci (including now)? No 07/14/2022 Housing Stability Vital Sign Answer Griffin e Recorded In the last 12 months, was t here a time when you were not able to pay the mortgage or rent on time? Yes 09/16/2024 In the past 12 months, how m any times have you moved where you were living? 0 09/16/2024 At any time in the past 12 m [facility], were you homeless or living in a fci (including now)? 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 Vertigo - Doing [...] Description 12/03/2024 3:00 PM CDT Telephone Pharmacy [address] [address] 03/25/2025 3:15 PM CDT Office Visit [place] - Dermatology [address] [place] [address] Roger Gupta MD [address] [place] [address] documented as of this encounter Visit Diagnoses Diagnosis Vertigo- Primary Dizziness and giddiness documented in this encounter Care Teams Grounds Worker Relationship Specialty [place] [address] [place] [address] PCP - General FAMILY MEDICINE 08/30/24 documented as of this encounter
--- OUTSIDE RECORDS SUMMARY | 2024-11-12 18:28 | XMS_ITS | Clinical Summary ---
Author Organization [facility] Address [address] [place] [address] Care Team Providers Care Supervisor Tank Storage Name Role Phone Pcp, No Primary Care [...] age to complete this topic Care Teams Supervisor Tank Storage Relationship Specialty Start Date End Date Pcp, No PCP - General 09/13/23
== END 2024-11-12 18:46 | disposition home or self-care (01) ==
PROVIDERS: Emergency Provider Emergency Medicine Emergency Medical Services
DX: N39.0 Urinary tract infection, site not specified (principal); R31.9 Hematuria, unspecified; R80.9 Proteinuria, unspecified
CPT/HCPCS: 81001; 87086; 99283; 99284